=== PATIENT | female | born 1995 | race American Indian/Alaskan Native ===

== ENCOUNTER 2016-12-19 15:07 | Emergency (ER) | payer MEDICAID ==
[2016-12-19 15:34] VITALS: BP 137/100
[2016-12-19 17:37] LABS: Bilirubin,Urine NEG (Negative); Blood,Urine MOD (Negative); Ketones,Urine NEG (Negative); Leukocyte Esterase,Urine LG (Negative); Mucus,Urine 1+ /HPF; Nitrite,Urine NEG (Negative); Urobilinogen,Urine < 2.0 mg/dL (<2.0)
--- NOTE | 2016-12-19 18:55 | Emergency Department Report ---
Entered by FARHAD NARAYANAN, acting as scribe for BELKYS FELDER PA. ED Back Pain/Injury HPI - General Chief Complaint: Back Pain/Injury Stated Complaint: BACK PAIN Source: patient Limitations: No Limitations - History of Present Illness Initial Comments: 21 y/o female with no significant PMHx, presents to the ED c/o right side lower back pain beginning yesterday. Denies radiation of pain. Denies numbness, weakness, paresthesias. The back pain is rated 8/10 severity. The patient denies acute trauma or injury to the affected area. Associated symptom of generalized weakness, fatigue, and lower abdominal pain, but she denies hematuria, urinary frequency, vaginal discharge, vaginal bleeding, chest pain, SOB, nausea, vomiting, and dysuria. Noted the patient has a Hx of UTI, but denies Hx of kidney stones. LMP 11/2016. Complaint: back pain -: days(s) (1 day ago, yesterday) Place: work Radiation: none Severity: moderate Severity scale (0 -10): 8 Consistency: constant Improves With: none Worsens With: none Context: unknown (patient denies acute injury or fall, ) Associated Symptoms: abdominal pain (lower), other (generalized weakness, fatigue, lightheadedness). denies: chest pain, fever/chills (urinary frequency , vaginal bleeding, hematuria, vaginal discharge), nausea/vomiting, shortness of breath - Related Data Previous Rx's Medication Instructions Recorded Last Taken Type Ibuprofen [Motrin 600 MG tab] 600 mg PO Q8H PRN #30 tablet 09/03/16 Unknown Rx Multivitamin with Iron 1 each PO DAILY #30 tablet 09/03/16 Unknown Rx [Multivitamins with Iron] Acetaminophen/Codeine [Tylenol #3] 1 tab PO Q6H PRN #10 tab 12/19/16 Unknown Rx Levofloxacin [Levaquin] 750 mg PO QDAY #5 tablet 12/19/16 Unknown Rx Allergies Allergy/AdvReac Type Severity Reaction Status Date / Time No Known Allergies Allergy Unverified 08/24/16 22:26 ED Review of Systems Comment: All other systems reviewed and negative Constitutional: denies: chills, fever Respiratory: denies: shortness of breath Cardiovascular: denies: chest pain Gastrointestinal: abdominal pain (lower). denies: nausea, vomiting Genitourinary: denies: urgency, dysuria, frequency, hematuria, discharge, other (vaginal bleeding) Musculoskeletal: back pain (right lower side) Neurological: other (generalized weakness, fatigue, lightheadedness) ED Past Medical Hx - Past Medical History Previous Medical History?: Yes Hx Hypertension: No Hx Congestive Heart Failure: No Hx Diabetes: No Hx Deep Vein Thrombosis: No Hx Renal Disease: No Hx Sickle Cell Disease: No Hx Seizures: No Hx Asthma: No (Hx Bronchitis) Hx COPD: No Hx HIV: No Additional medical history: Vaginal delivery x 1 - Surgical History Past Surgical History?: No - Social History Smoking Status: Never Smoker Substance Use Type: Non Opiate Pain - Medications Home Medications: Home Medications Medication Instructions Recorded Confirmed Last Taken Type Ibuprofen [Motrin 600 MG tab] 600 mg PO Q8H PRN #30 tablet 09/03/16 Unknown Rx Multivitamin with Iron 1 each PO DAILY #30 tablet 09/03/16 Unknown Rx [Multivitamins with Iron] Acetaminophen/Codeine [Tylenol #3] 1 tab PO Q6H PRN #10 tab 12/19/16 Unknown Rx Levofloxacin [Levaquin] 750 mg PO QDAY #5 tablet 12/19/16 Unknown Rx ED Physical Exam - General Limitations: No Limitations General appearance: alert, in no apparent distress - Head Head exam: Present: atraumatic, normocephalic - Eye Eye exam: Present: normal appearance - ENT ENT exam: Present: normal external ear exam - Neck Neck exam: Present: normal inspection, full ROM (supple) - Respiratory Respiratory exam: Present: normal lung sounds bilaterally (clear to auscultation ). Absent: respiratory distress - Cardiovascular Cardiovascular Exam: Present: regular rate, normal rhythm, normal heart sounds. Absent: systolic murmur, diastolic murmur, rubs, gallop - GI/Abdominal GI/Abdominal exam: Present: soft, normal bowel sounds (normoactive bowel sounds) . Absent: tenderness, guarding, rebound - Extremities Exam Extremities exam: Present: normal inspection, full ROM - Back Exam Back exam: Present: normal inspection, full ROM, CVA tenderness (R). Absent: CVA tenderness (L), paraspinal tenderness, vertebral tenderness - Expanded Back Exam Expanded Back exam: Negative Straight Leg Raising: Left, Right - Neurological Exam Neurological exam: Present: alert, oriented X3 - Psychiatric Psychiatric exam: Present: normal affect, normal mood - Skin Skin exam: Present: warm, dry, intact ED Course Vital Signs 12/19/16 15:31 Temperature 98.2 F Pulse Rate 55 L Respiratory 18 Rate Blood Pressure 137/100 O2 Sat by Pulse 99 Oximetry ED Medical Decision Making - Lab Data Vital Signs 12/19/16 15:31 Temperature 98.2 F Pulse Rate 55 L Respiratory 18 Rate Blood Pressure 137/100 O2 Sat by Pulse 99 Oximetry Lab Results 12/19/16 Range/Units 16:01 Urine Color Yellow (Yellow) Urine Turbidity Clear (Clear) Urine pH 5.0 (5.0-7.0) Ur Specific Antoine 1.025 (1.003-1.030) Urine Protein 30 mg/dl (Negative) mg/dL Urine Glucose (UA) Neg (Negative) mg/dL Urine Ketones Neg (Negative) mg/dL Urine Blood Mod (Negative) Urine Nitrite Neg (Negative) Urine Bilirubin Neg (Negative) Urine Urobilinogen < 2.0 (<2.0) mg/dL Ur Leukocyte Esterase Lg (Negative) Urine WBC (Auto) 66.0 H (0.0-6.0) /HPF Urine RBC (Auto) 2.0 (0.0-6.0) /HPF U Epithel Cells (Auto) 5.0 (0-13.0) /HPF Urine Mucus 1+ /HPF Urine HCG, Qual Negative (Negative) - Medical Decision Making 21 y/o female presents complaining of right side lower back pain beginning yesterday. Patient has prior Hx of UTI. Her urine test is negative. Her urinalysis reveals large leukocyte esterase, elevated urine WBC and moderate blood. Patient is in no acute distress at this time, with normal vitals and non-febrile. Patient will be sent home on Levaquin. She will be discharged home and is encouraged to follow up with a primary care provider. She is encouraged to return to the emergency room for any worsening symptoms. ED Disposition Clinical Impression: UTI (urinary tract infection) Qualifiers: Urinary tract infection type: acute cystitis Hematuria presence: with hematuria Qualified Code(s): N30.01 - Acute cystitis with hematuria Disposition: DISCHARGED TO HOME OR SELFCARE Is pt being admited?: No Does the pt Need Aspirin: No Condition: Stable Instructions: Urinary Tract Infection in Women (ED) Additional Instructions: Follow-up with primary care provider. Return to the emergency department if symptoms worsen. Prescriptions: Acetaminophen/Codeine [Tylenol #3] 1 tab PO Q6H PRN #10 tab PRN Reason: Pain Levofloxacin [Levaquin] 750 mg PO QDAY #5 tablet Referrals: HARSHAD JAY MD [Primary Care Provider] - 3-5 Days SAMANTHA BAXTER MD [Staff Physician] - 3-5 Days Forms: Work/School Release Form(ED), Accompanied Note Time of Disposition: 18:50 This documentation as recorded by the ORACIO josé GRACE,accurately reflects the service I personally performed and the decisions made by ,BELKYS FELDER PA.
== END 2016-12-19 18:59 | disposition home or self-care (01) ==
LOC: ED 15:07
DX: N30.01 Acute cystitis with hematuria (principal)
CPT/HCPCS: 81001; 81025; 99283

== ENCOUNTER 2018-04-10 19:42 | Emergency (ER) | payer MEDICAID ==
[2018-04-10 20:52] LABS: Bilirubin,Urine NEG (Negative); Blood,Urine SM (Negative); Color,Urine Yellow (Yellow); Mucus,Urine FEW /HPF; Protein,Urine <15 mg/dL mg/dL (Negative)
[2018-04-10 21:24] LABS: Basophils % (Auto) 0.2 % (0.0-1.8); Eosinophils # (Auto) 0.4 K/mm3 (0.0-0.4); Eosinophils % (Auto) 5.7 % (0.0-4.3); Hematocrit 36.8 % (30.3-42.9); Hemoglobin 12.9 gm/dl (10.1-14.3); Lymphocytes # (Auto) 1.3 K/mm3 (1.2-5.4); Lymphocytes % (Auto) 19.1 % (13.4-35.0); Mean Corpuscular HGB Conc 35 % (30-34); Mean Corpuscular Hemoglobin 31 pg (28-32); Mean Corpuscular Volume 88 fl (79-97); Monocytes # (Auto) 0.6 K/mm3 (0.0-0.8); Monocytes % (Auto) 9.2 % (0.0-7.3); Platelet Count 196 K/mm3 (140-440); Red Blood Count 4.19 M/mm3 (3.65-5.03); Red Cell Distribution Width 13.5 % (13.2-15.2)
--- NOTE | 2018-04-11 00:17 | Emergency Department Report ---
ED Female HPI - General Chief complaint: Vaginal Bleeding Stated complaint: VAGINAL BLEEDING Time Seen by Provider: 04/11/18 00:09 Source: patient Mode of arrival: Ambulatory Limitations: No Limitations - History of Present Illness Initial comments: Ms. Miranda is pleasant 22 yo female who presents with vaginal spotting for one hour. Mild bleeding only when she wiped. She does not have pain. Sudden onset of symptoms. Now resolved. first appt at [facility] scheduled 04/20/2018 Complaint: vaginal bleeding -: Sudden Severity: mild Are you Now?: Yes Last Menstrual Period: 01/23/18 EDC: 10/30/18 Associated Symptoms: vaginal bleeding - Related Data Previous Rx's Medication Instructions Recorded Last Taken Type Ibuprofen [Motrin 600 MG tab] 600 mg PO Q8H PRN #30 tablet 09/03/16 Unknown Rx Multivitamin with Iron 1 each PO DAILY #30 tablet 09/03/16 Unknown Rx [Multivitamins with Iron] Acetaminophen/Codeine [Tylenol #3] 1 tab PO Q6H PRN #10 tab 12/19/16 Unknown Rx Levofloxacin [Levaquin] 750 mg PO QDAY #5 tablet 12/19/16 Unknown Rx Allergies Allergy/AdvReac Type Severity Reaction Status Date / Time No Known Allergies Allergy Verified 04/10/18 20:00 ED Review of Systems ROS: Stated complaint: VAGINAL BLEEDING Other details as noted in HPI Comment: All other systems reviewed and negative Constitutional: denies: fever, malaise Cardiovascular: denies: chest pain Gastrointestinal: denies: abdominal pain ED Past Medical Hx - Past Medical History Previous Medical History?: Yes Hx Hypertension: No Hx Congestive Heart Failure: No Hx Diabetes: No Hx Deep Vein Thrombosis: No Hx Renal Disease: No Hx Sickle Cell Disease: No Hx Seizures: No Hx Asthma: Yes (Hx Bronchitis) Hx COPD: No Hx HIV: No Additional medical history: Vaginal delivery x 1 - Surgical History Past Surgical History?: No - Social History Smoking Status: Never Smoker Substance Use Type: None - Medications Home Medications: Home Medications Medication Instructions Recorded Confirmed Last Taken Type Ibuprofen [Motrin 600 MG tab] 600 mg PO Q8H PRN #30 tablet 09/03/16 Unknown Rx Multivitamin with Iron 1 each PO DAILY #30 tablet 09/03/16 Unknown Rx [Multivitamins with Iron] Acetaminophen/Codeine [Tylenol #3] 1 tab PO Q6H PRN #10 tab 12/19/16 Unknown Rx Levofloxacin [Levaquin] 750 mg PO QDAY #5 tablet 12/19/16 Unknown Rx ED Physical Exam - General Limitations: No Limitations General appearance: alert, in no apparent distress - Head Head exam: Present: atraumatic, normocephalic - Eye Eye exam: Present: normal appearance - ENT ENT exam: Present: mucous membranes moist - Neck Neck exam: Present: normal inspection. Absent: tenderness, meningismus - Respiratory Respiratory exam: Present: normal lung sounds bilaterally. Absent: respiratory distress, wheezes, rales, rhonchi - Cardiovascular Cardiovascular Exam: Present: regular rate, normal rhythm. Absent: systolic murmur, diastolic murmur, rubs, gallop - GI/Abdominal GI/Abdominal exam: Present: soft, normal bowel sounds. Absent: distended, tenderness, guarding, rebound - Extremities Exam Extremities exam: Present: normal inspection - Back Exam Back exam: Present: normal inspection - Neurological Exam Neurological exam: Present: alert, oriented X3 - Psychiatric Psychiatric exam: Present: normal affect, normal mood - Skin Skin exam: Present: warm, dry, intact, normal color. Absent: rash ED Course Vital Signs 04/10/18 04/10/18 19:56 23:54 Temperature 98.3 F 98.2 F Pulse Rate 85 82 Respiratory 18 16 Rate Blood Pressure 119/89 Blood Pressure 121/71 [Left] O2 Sat by Pulse 98 99 Oximetry ED Medical Decision Making - Lab Data Result diagrams: 04/10/18 20:57 Laboratory Results - last 24 hr 04/10/18 04/10/18 04/10/18 20:28 20:57 20:57 WBC 6.8 RBC 4.19 Hgb 12.9 Hct 36.8 MCV 88 MCH 31 MCHC 35 H RDW 13.5 Plt Count 196 Lymph % (Auto) 19.1 [place] % (Auto) 9.2 H Eos % (Auto) 5.7 H Baso % (Auto) 0.2 Lymph # 1.3 [place] # 0.6 Eos # 0.4 Baso # 0.0 Seg Neutrophils % 65.8 Seg Neutrophils # 4.5 HCG, Quant 50774 H Urine Color Yellow Urine Turbidity Clear Urine pH 6.0 Ur Specific Mathews 1.028 Urine Protein <15 mg/dl Urine Glucose (UA) Neg Urine Ketones Neg Urine Blood Sm Urine Nitrite Neg Urine Bilirubin Neg Urine Urobilinogen 2.0 Ur Leukocyte Esterase Neg Urine WBC (Auto) 1.0 Urine RBC (Auto) 2.0 U Epithel Cells (Auto) 1.0 Urine Mucus Few Blood Type Antibody Screen 04/10/18 20:57 WBC RBC Hgb Hct MCV MCH MCHC RDW Plt Count Lymph % (Auto) [place] % (Auto) Eos % (Auto) Baso % (Auto) Lymph # [place] # Eos # Baso # Seg Neutrophils % Seg Neutrophils # HCG, Quant Urine Color Urine Turbidity Urine pH Ur Specific [place] Urine Protein Urine Glucose (UA) Urine Ketones Urine Blood Urine Nitrite Urine Bilirubin Urine Urobilinogen Ur Leukocyte Esterase Urine WBC (Auto) Urine RBC (Auto) U Epithel Cells (Auto) Urine Mucus Blood Type AB POSITIVE Antibody Screen Negative - Medical Decision Making Ms. Miranda is currently 11 weeks 1 day with mild vaginal spotting. No indication of ectopic without pain or other symptoms. Patient given return precautions. Rh+ Critical care attestation.: If time is entered above; I have spent that time in minutes in the direct care of this critically ill patient, excluding procedure time. ED Disposition Clinical Impression: Threatened miscarriage Disposition: DC-01 TO HOME OR SELFCARE Is pt being admited?: No Does the pt Need Aspirin: No Condition: Stable Instructions: Threatened Miscarriage (ED) Additional Instructions: Your due date is 10/30/2018 Referrals: PRIMARY CAREMD [Primary Care Provider] - 3-5 Days Time of Disposition: 00:18
[2018-04-11 00:23] VITALS: BP 112/70
== END 2018-04-11 00:26 | disposition home or self-care (01) ==
LOC: ED 19:42
DX: O20.0 Threatened abortion (principal); Z3A.11 11 weeks gestation of pregnancy; J45.909 Unspecified asthma, uncomplicated
CPT/HCPCS: 36415; 81001; 84702; 85025; 86850; 86900; 86901; 99283

== ENCOUNTER 2018-05-29 21:17 | Emergency (ER) | payer MEDICAID ==
[2018-05-29 22:16] LABS: Hematocrit 45.6 % (30.3-42.9); Hemoglobin 15.7 gm/dl (10.1-14.3); Mean Corpuscular HGB Conc 35 % (30-34); Mean Corpuscular Hemoglobin 30 pg (28-32); Mean Corpuscular Volume 88 fl (79-97); Platelet Count 286 K/mm3 (140-440); Red Blood Count 5.17 M/mm3 (3.65-5.03); Red Cell Distribution Width 13.4 % (13.2-15.2)
[2018-05-29 22:35] LABS: BUN/Creatinine Ratio 21; Blood Urea Nitrogen 15 mg/dL (7-17); Hemolysis Index 10
[2018-05-29 23:13] LABS: Bilirubin,Urine NEG (Negative); Blood,Urine NEG (Negative); Color,Urine Yellow (Yellow); Mucus,Urine FEW /HPF; Urobilinogen,Urine < 2.0 mg/dL (<2.0)
[2018-05-29 23:17] LABS: HCG Qualitative,Urine Negative (Negative)
[2018-05-30 07:39] VITALS: BP 117/76
== END 2018-05-30 07:39 | disposition left against medical advice (07) ==
LOC: ED 21:17
DX: R51 Headache (principal); Z53.21 Procedure and treatment not carried out due to patient leaving prior to being seen by health care provider
CPT/HCPCS: 36415; 80048; 81001; 81025; 85027

== ENCOUNTER 2018-12-13 22:31 | Outpatient (CLI) | payer BC, MEDICAID ==
[2018-12-13] MEDS ORDERED: LACTATED RINGERS 1,000 ML IV ONE (23:21)
[2018-12-13 23:25] VITALS: BP 124/85
[2018-12-14 00:41] LABS: Amorphous Crystals,Urine 3+; Bilirubin,Urine NEG (Negative); Blood,Urine NEG (Negative); Color,Urine Yellow (Yellow); Granular Casts,Urine 16 /LPF; Mucus,Urine FEW /HPF; Protein,Urine <15 mg/dL mg/dL (Negative)
== END 2018-12-14 02:51 | disposition home or self-care (01) ==
LOC: EDSTATUS 22:57 → TRG 22:58
PROVIDERS: ATTEND Obstetrics & Gynecology
DX: O26.893 Other specified pregnancy related conditions, third trimester (principal); R10.2 Pelvic and perineal pain; Z3A.29 29 weeks gestation of pregnancy
CPT/HCPCS: 59025; 81001; 96360; J7120

== ENCOUNTER 2021-06-03 17:28 | Emergency (ER) | payer MEDICAID ==
[2021-06-03 21:12] VITALS: BP 130/70
[2021-06-03] MEDS ORDERED: PROMETHAZINE 25 MG TAB PO ONE (23:50)
--- NOTE | 2021-06-03 23:54 | Emergency Department Report ---
ED N/V/D HPI - General Chief complaint: Nausea/Vomiting/Diarrhea Stated complaint: RUNNY NOSE,DRY COUGH,VOMITING Source: patient Mode of arrival: Ambulatory Limitations: No Limitations - History of Present Illness Initial comments: Patient is A0 25-year-old -[place] female who is approximately 13 weeks gestation and who presents to the ED with complaint of acute onset persistent intermittent nausea and vomiting for the last 2 weeks. Patient states that she has been taking Zofran that was previously prescribed by her CARE DIRECTOR RN physician but that this medicine has not helped control her nausea and vomiting. Patient states that in the last 12 hours she has not been able to eat or drink anything because of persistent intermittent nausea and vomiting. Patient denies abdominal pain, vaginal bleeding, dysuria, urinary frequency and urgency, back pain, chest pain, shortness of breath, fever, chills, sore throat, headache, dizziness, lightheadedness or change in vision. MD complaint: nausea, vomiting, other -: Sudden, week(s) (2) Description of Vomiting: food contents, bilious Associated Abdominal Pain: No Location: diffuse Radiation: none Severity: mild Pain Scale: 0 Quality: dull Improves with: none Worsens with: eating, vomiting Context: other (approximately 12 weeks gestation) Associated Symptoms: denies other symptoms, nausea/vomiting. denies: myalgias, chest pain, cough, fever/chills, headaches, malaise, rash, dysuria, shortness of breath, syncope, weakness - Related Data Previous Rx's Medication Instructions Recorded Last Taken Type Ibuprofen [Motrin 600 MG tab] 600 mg PO Q8H PRN #30 tablet 09/03/16 Unknown Rx Multivitamin with Iron 1 each PO DAILY #30 tablet 09/03/16 Unknown Rx [Multivitamins with Iron] Acetaminophen/Codeine [Tylenol #3] 1 tab PO Q6H PRN #10 tab 12/19/16 Unknown Rx levoFLOXacin [Levaquin] 750 mg PO QDAY #5 tablet 12/19/16 Unknown Rx Acetaminophen [Tylenol] 650 mg PO QID PRN #30 capsule 09/14/18 Unknown Rx diphenhydrAMINE [Benadryl CAP] 25 mg PO Q6HR PRN #30 capsule 09/14/18 Unknown Rx Famotidine [Pepcid] 20 mg PO BID #40 tablet 06/03/21 Unknown Rx Metoclopramide [Reglan TAB] 10 mg PO Q8H PRN #30 tablet 06/03/21 Unknown Rx Promethazine HCl [Promethegan] 25 mg RC QHS PRN #20 supp.rect 06/03/21 Unknown Rx Allergies Allergy/AdvReac Type Severity Reaction Status Date / Time No Known Allergies Allergy Verified 06/03/21 21:01 ED Review of Systems ROS: Stated complaint: RUNNY NOSE,DRY COUGH,VOMITING Other details as noted in HPI Constitutional: denies: chills, fever Eyes: denies: eye pain, eye discharge, vision change ENT: denies: ear pain, throat pain Respiratory: denies: cough, shortness of breath, wheezing Cardiovascular: denies: chest pain, palpitations Endocrine: no symptoms reported Gastrointestinal: nausea, vomiting. denies: abdominal pain, diarrhea Genitourinary: denies: urgency, dysuria, discharge Musculoskeletal: denies: back pain, joint swelling, arthralgia Skin: denies: rash, lesions Neurological: denies: headache, weakness, paresthesias Psychiatric: denies: anxiety, depression Hematological/Lymphatic: denies: easy bleeding, easy bruising ED Past Medical Hx - Past Medical History Previous Medical History?: No Hx Hypertension: No Hx Congestive Heart Failure: No Hx Diabetes: No Hx Deep Vein Thrombosis: No Hx Renal Disease: No Hx Sickle Cell Disease: No Hx Seizures: No Hx Asthma: No Hx COPD: No Hx HIV: No Additional medical history: Vaginal delivery x 1 - Social History Smoking Status: Never Smoker - Medications Home Medications: Home Medications Medication Instructions Recorded Confirmed Last Taken Type Ibuprofen [Motrin 600 MG tab] 600 mg PO Q8H PRN #30 tablet 09/03/16 Unknown Rx Multivitamin with Iron 1 each PO DAILY #30 tablet 09/03/16 Unknown Rx [Multivitamins with Iron] Acetaminophen/Codeine [Tylenol #3] 1 tab PO Q6H PRN #10 tab 12/19/16 Unknown Rx levoFLOXacin [Levaquin] 750 mg PO QDAY #5 tablet 12/19/16 Unknown Rx Acetaminophen [Tylenol] 650 mg PO QID PRN #30 capsule 09/14/18 Unknown Rx diphenhydrAMINE [Benadryl CAP] 25 mg PO Q6HR PRN #30 capsule 09/14/18 Unknown Rx Famotidine [Pepcid] 20 mg PO BID #40 tablet 06/03/21 Unknown Rx Metoclopramide [Reglan TAB] 10 mg PO Q8H PRN #30 tablet 06/03/21 Unknown Rx Promethazine HCl [Promethegan] 25 mg RC QHS PRN #20 supp.rect 06/03/21 Unknown Rx ED Physical Exam - General Limitations: No Limitations General appearance: alert, in no apparent distress - Head Head exam: Present: atraumatic, normocephalic, normal inspection - Eye Eye exam: Present: normal appearance, PERRL, EOMI Pupils: Present: normal accommodation - ENT ENT exam: Present: normal exam, normal orophraynx, mucous membranes moist, TM's normal bilaterally, normal external ear exam - Neck Neck exam: Present: normal inspection, full ROM - Respiratory Respiratory exam: Present: normal lung sounds bilaterally. Absent: respiratory distress, wheezes, rales, rhonchi, chest wall tenderness, accessory muscle use, decreased breath sounds, prolonged expiratory - Cardiovascular Cardiovascular Exam: Present: regular rate, normal rhythm, normal heart sounds. Absent: systolic murmur, diastolic murmur, rubs, gallop - GI/Abdominal GI/Abdominal exam: Present: soft, normal bowel sounds. Absent: tenderness, guarding, rebound, hyperactive bowel sounds, hypoactive bowel sounds, organomegaly - Extremities Exam Extremities exam: Present: normal inspection, full ROM, normal capillary refill - Back Exam Back exam: Present: normal inspection, full ROM. Absent: tenderness, CVA tenderness (R), CVA tenderness (L), muscle spasm, paraspinal tenderness, vertebral tenderness - Neurological Exam Neurological exam: Present: alert, oriented X3, CN II-XII intact, normal gait, reflexes normal - Psychiatric Psychiatric exam: Present: normal affect, normal mood - Skin Skin exam: Present: warm, dry, intact, normal color. Absent: rash ED Course Vital Signs 06/03/21 21:01 Temperature 98.3 F Pulse Rate 66 Respiratory 18 Rate Blood Pressure 130/70 O2 Sat by Pulse 100 Oximetry ED Medical Decision Making - Medical Decision Making This is A0 25-year-old -[place] female who is approximately 13 weeks gestation and who presents to the ED with complaint of acute onset persistent intermittent nausea and vomiting for the last 2 weeks. Patient states that she has been taking Zofran that was previously prescribed by her CARE DIRECTOR RN physician but that this medicine has not helped control her nausea and vomiting. Patient states that in the last 12 hours she has not been able to eat or drink anything because of persistent intermittent nausea and vomiting. In the ED, patient is alert and oriented x3 and is not in any distress. Patient is hemodynamically stable. Patient was treated in the ED with Phenergan 25 mg p.o. x1. On reevaluation, patient felt better and was discharged home on medications including antiemetics and antacids. Patient was advised to follow-up with her CARE DIRECTOR RN physician in 5 to 7 days for reevaluation or return to the ED immediately if symptoms get worse. - Differential Diagnosis dehydration; hyperemesis gravidarum; viral gastroenteritis; GERD Critical care attestation.: If time is entered above; I have spent that time in minutes in the direct care of this critically ill patient, excluding procedure time. ED Disposition Clinical Impression: Nausea and vomiting in prior to 22 weeks gestation Disposition: HOME / SELF CARE / HOMELESS Is pt being admited?: No Does the pt Need Aspirin: No Condition: Stable Instructions: Nausea and Vomiting, Adult, [id number], Morning Sickness, [id number] Additional Instructions: Take medication with food, drink plenty of fluids and follow-up with your primary care physician or CARE DIRECTOR RN physician in 5 to 7 days for reevaluation. Return to the ED immediately if symptoms get worse. Prescriptions: Promethazine HCl [Promethegan] 25 mg RC QHS PRN #20 supp.rect PRN Reason: Nausea And Vomiting Famotidine [Pepcid] 20 mg PO BID #40 tablet Metoclopramide [Reglan TAB] 10 mg PO Q8H PRN #30 tablet PRN Reason: Vomiting Referrals: SUNIL JAY MD [Referring] - 3-5 Days Forms: Work/School Release Form(ED) Time of Disposition: 23:55 Print Language: THAI
== END 2021-06-04 00:37 | disposition home or self-care (01) ==
LOC: ED 17:28
DX: O21.8 Other vomiting complicating pregnancy (principal); O26.891 Other specified pregnancy related conditions, first trimester; Z3A.13 13 weeks gestation of pregnancy
CPT/HCPCS: 99281; Q0169

== ENCOUNTER 2021-06-15 16:53 | Emergency (ER) | payer MEDICAID ==
[2021-06-15 17:58] VITALS: BP 106/73
[2021-06-15] MEDS ORDERED: SODIUM CHLORIDE 0.9% 1000 ML 1,000 ML IV ONE (19:12)
[2021-06-15] MEDS ORDERED: METOCLOPRAMIDE 10 MG/2 ML INJ IV ONE (19:12)
[2021-06-15 20:00] LABS: Basophils % (Auto) 0.3 % (0.0-1.8); Eosinophils # (Auto) 0.1 K/mm3 (0.0-0.4); Eosinophils % (Auto) 1.5 % (0.0-4.3); Hematocrit 38.9 % (30.3-42.9); Hemoglobin 13.9 gm/dl (10.1-14.3); Lymphocytes # (Auto) 1.3 K/mm3 (1.2-5.4); Lymphocytes % (Auto) 20.9 % (13.4-35.0); Mean Corpuscular HGB Conc 36 % (30-34); Mean Corpuscular Volume 86 fl (79-97); Monocytes # (Auto) 0.6 K/mm3 (0.0-0.8); Monocytes % (Auto) 9.1 % (0.0-7.3); Platelet Count 194 K/mm3 (140-440); Red Blood Count 4.51 M/mm3 (3.65-5.03); Red Cell Distribution Width 13.2 % (13.2-15.2)
[2021-06-15 20:18] LABS: Alanine Aminotransferase 8 units/L (7-56); Albumin 4.2 g/dL (3.9-5); Blood Urea Nitrogen 7 mg/dL (7-17); Calcium 9.3 mg/dL (8.4-10.2); Hemolysis Index 1
[2021-06-15 20:19] LABS: BUN/Creatinine Ratio 14
--- NOTE | 2021-06-15 22:15 | Emergency Department Report ---
ED N/V/D HPI - General Chief complaint: Nausea/Vomiting/Diarrhea Stated complaint: NAUSEA X 3WKS/15 WKS PREG Time Seen by Provider: 06/15/21 19:03 Source: patient, family Mode of arrival: Ambulatory Limitations: No Limitations - History of Present Illness Initial comments: This is a 25-year-old female nontoxic, well nourished in appearance, no acute signs of distress presents to the ED with c/o of intermittent nausea and vomiting 3 weeks. Patient stated that 15 weeks . Patient stated follows up with an [facility]. Patient otherwise denies any vaginal bleeding. Denies any other complaints or symptoms. Patient describes vomiting as food content. Patient denies any abdominal pain, pelvic pain, chest pain, short of breath, fever, chills, headache, stiff neck, numbness or tingling. Patient denies any diarrhea or constipation. Denies any blood in stool. Patient denies any recent travels. Patient denies any drug allergies or significant past medical history. MD complaint: nausea, vomiting -: week(s) Associated Abdominal Pain: No Radiation: none Pain Scale: 0 Consistency: intermittent Improves with: none Worsens with: none Associated Symptoms: nausea/vomiting. denies: myalgias, chest pain, cough, d iaphoresis, fever/chills, headaches, loss of appetite, malaise, rash, dysuria, shortness of breath, syncope, weakness - Related Data Previous Rx's Medication Instructions Recorded Last Taken Type Ibuprofen [Motrin 600 MG tab] 600 mg PO Q8H PRN #30 tablet 09/03/16 Unknown Rx Multivitamin with Iron 1 each PO DAILY #30 tablet 09/03/16 Unknown Rx [Multivitamins with Iron] Acetaminophen/Codeine [Tylenol #3] 1 tab PO Q6H PRN #10 tab 12/19/16 Unknown Rx levoFLOXacin [Levaquin] 750 mg PO QDAY #5 tablet 12/19/16 Unknown Rx Acetaminophen [Tylenol] 650 mg PO QID PRN #30 capsule 09/14/18 Unknown Rx diphenhydrAMINE [Benadryl CAP] 25 mg PO Q6HR PRN #30 capsule 09/14/18 Unknown Rx Famotidine [Pepcid] 20 mg PO BID #40 tablet 06/03/21 Unknown Rx Metoclopramide [Reglan TAB] 10 mg PO Q8H PRN #30 tablet 06/03/21 Unknown Rx Promethazine HCl [Promethegan] 25 mg RC QHS PRN #20 supp.rect 06/03/21 Unknown Rx Metoclopramide [Reglan] 10 mg PO Q12H PRN #12 tab 06/15/21 Unknown Rx Allergies Allergy/AdvReac Type Severity Reaction Status Date / Time No Known Allergies Allergy Verified 06/03/21 21:01 ED Review of Systems ROS: Stated complaint: NAUSEA X 3WKS/15 WKS PREG Other details as noted in HPI Comment: All other systems reviewed and negative Constitutional: denies: chills, fever Eyes: denies: eye pain, eye discharge, vision change ENT: denies: ear pain, throat pain Respiratory: denies: cough, shortness of breath, wheezing Cardiovascular: denies: chest pain, palpitations Endocrine: no symptoms reported Gastrointestinal: nausea, vomiting. denies: abdominal pain, diarrhea, constipation, hematemesis, melena, hematochezia Genitourinary: denies: urgency, dysuria, discharge Musculoskeletal: denies: back pain, joint swelling, arthralgia Skin: denies: rash, lesions Neurological: denies: headache, weakness, paresthesias Psychiatric: denies: anxiety, depression Hematological/Lymphatic: denies: easy bleeding, easy bruising ED Past Medical Hx - Past Medical History Previous Medical History?: Yes Hx Hypertension: No Hx Congestive Heart Failure: No Hx Diabetes: No Hx Deep Vein Thrombosis: No Hx Renal Disease: No Hx Sickle Cell Disease: No Hx Seizures: No Hx Asthma: No Hx COPD: No Hx HIV: No Additional medical history: Vaginal delivery x 1 - Surgical History Past Surgical History?: No - Social History Smoking Status: Never Smoker - Medications Home Medications: Home Medications Medication Instructions Recorded Confirmed Last Taken Type Ibuprofen [Motrin 600 MG tab] 600 mg PO Q8H PRN #30 tablet 09/03/16 Unknown Rx Multivitamin with Iron 1 each PO DAILY #30 tablet 09/03/16 Unknown Rx [Multivitamins with Iron] Acetaminophen/Codeine [Tylenol #3] 1 tab PO Q6H PRN #10 tab 12/19/16 Unknown Rx levoFLOXacin [Levaquin] 750 mg PO QDAY #5 tablet 12/19/16 Unknown Rx Acetaminophen [Tylenol] 650 mg PO QID PRN #30 capsule 09/14/18 Unknown Rx diphenhydrAMINE [Benadryl CAP] 25 mg PO Q6HR PRN #30 capsule 09/14/18 Unknown Rx Famotidine [Pepcid] 20 mg PO BID #40 tablet 06/03/21 Unknown Rx Metoclopramide [Reglan TAB] 10 mg PO Q8H PRN #30 tablet 06/03/21 Unknown Rx Promethazine HCl [Promethegan] 25 mg RC QHS PRN #20 supp.rect 06/03/21 Unknown Rx Metoclopramide [Reglan] 10 mg PO Q12H PRN #12 tab 06/15/21 Unknown Rx ED Physical Exam - General Limitations: No Limitations General appearance: alert, in no apparent distress - Head Head exam: Present: atraumatic, normocephalic - Eye Eye exam: Present: normal appearance - Neck Neck exam: Present: normal inspection, full ROM. Absent: tenderness, meningismus, lymphadenopathy - Respiratory Respiratory exam: Present: normal lung sounds bilaterally. Absent: respiratory distress, wheezes, rales, rhonchi, stridor, chest wall tenderness, accessory muscle use, decreased breath sounds, prolonged expiratory - Cardiovascular Cardiovascular Exam: Present: regular rate, normal rhythm, normal heart sounds. Absent: bradycardia, tachycardia, irregular rhythm, systolic murmur, diastolic murmur, rubs, gallop - GI/Abdominal GI/Abdominal exam: Present: soft, normal bowel sounds. Absent: distended, tenderness, guarding, rebound, rigid - Extremities Exam Extremities exam: Present: normal inspection, full ROM - Back Exam Back exam: Present: normal inspection, full ROM. Absent: tenderness, CVA tenderness (R), CVA tenderness (L), muscle spasm, paraspinal tenderness, vertebral tenderness, rash noted - Neurological Exam Neurological exam: Present: alert, oriented X3, normal gait - Psychiatric Psychiatric exam: Present: normal affect, normal mood - Skin Skin exam: Present: warm, dry, intact, normal color. Absent: rash ED Course Vital Signs 06/15/21 17:57 Temperature 98.3 F Pulse Rate 77 Respiratory 18 Rate Blood Pressure 106/73 [Right] O2 Sat by Pulse 99 Oximetry - Reevaluation(s) Reevaluation #1: 06/15/21 22:17 Patient is speaking in full sentences with no signs of distress noted. ED Medical Decision Making - Lab Data Result diagrams: 06/15/21 19:42 06/15/21 19:42 Lab Results 06/15/21 06/15/21 06/15/21 Range/Units 19:42 19:42 19:42 WBC 6.3 (4.5-11.0) K/mm3 RBC 4.51 (3.65-5.03) M/mm3 Hgb 13.9 (10.1-14.3) gm/dl Hct 38.9 (30.3-42.9) % MCV 86 (79-97) fl MCH 31 (28-32) pg MCHC 36 H (30-34) % RDW 13.2 (13.2-15.2) % Plt Count 194 (140-440) K/mm3 Lymph % (Auto) 20.9 (13.4-35.0) % Wheeler % (Auto) 9.1 H (0.0-7.3) % Eos % (Auto) 1.5 (0.0-4.3) % Baso % (Auto) 0.3 (0.0-1.8) % Lymph # (Auto) 1.3 (1.2-5.4) K/mm3 Wheeler # (Auto) 0.6 (0.0-0.8) K/mm3 Eos # (Auto) 0.1 (0.0-0.4) K/mm3 Baso # (Auto) 0.0 (0.0-0.1) K/mm3 Seg Neutrophils % 68.2 (40.0-70.0) % Seg Neutrophils # 4.3 (1.8-7.7) K/mm3 Sodium 135 L (137-145) mmol/L Potassium 3.8 (3.6-5.0) mmol/L Chloride 101.7 (98-107) mmol/L Carbon Dioxide 24 (22-30) mmol/L Anion Gap 13 mmol/L BUN 7 (7-17) mg/dL Creatinine 0.5 L (0.6-1.2) mg/dL Estimated GFR > 60 ml/min BUN/Creatinine Ratio 14 % Glucose 89 (65-100) mg/dL Calcium 9.3 (8.4-10.2) mg/dL Total Bilirubin 0.50 (0.1-1.2) mg/dL AST 12 (5-40) units/L ALT 8 (7-56) units/L Alkaline Phosphatase 40 (35-129) units/L Total Protein 7.8 (6.3-8.2) g/dL Albumin 4.2 (3.9-5) g/dL Albumin/Globulin Ratio 1.2 % HCG, Quant 10722 H (0-4) mIU/mL Urine Color (Yellow) Urine Turbidity (Clear) Urine pH (5.0-7.0) Ur Specific [place] (1.003-1.030) Urine Protein (Negative) mg/dL Urine Glucose (UA) (Negative) mg/dL Urine Ketones (Negative) mg/dL Urine Blood (Negative) Urine Nitrite (Negative) Urine Bilirubin (Negative) Urine Urobilinogen (<2.0) mg/dL Ur Leukocyte Esterase (Negative) Urine WBC (Auto) (0.0-6.0) /HPF Urine RBC (Auto) (0.0-6.0) /HPF U Epithel Cells (Auto) (0-13.0) /HPF Urine Mucus /HPF 06/15/21 Range/Units Unknown WBC (4.5-11.0) K/mm3 RBC (3.65-5.03) M/mm3 Hgb (10.1-14.3) gm/dl Hct (30.3-42.9) % MCV (79-97) fl MCH (28-32) pg MCHC (30-34) % RDW (13.2-15.2) % Plt Count (140-440) K/mm3 Lymph % (Auto) (13.4-35.0) % Wheeler % (Auto) (0.0-7.3) % Eos % (Auto) (0.0-4.3) % Baso % (Auto) (0.0-1.8) % Lymph # (Auto) (1.2-5.4) K/mm3 Wheeler # (Auto) (0.0-0.8) K/mm3 Eos # (Auto) (0.0-0.4) K/mm3 Baso # (Auto) (0.0-0.1) K/mm3 Seg Neutrophils % (40.0-70.0) % Seg Neutrophils # (1.8-7.7) K/mm3 Sodium (137-145) mmol/L Potassium (3.6-5.0) mmol/L Chloride (98-107) mmol/L Carbon Dioxide (22-30) mmol/L Anion Gap mmol/L BUN (7-17) mg/dL Creatinine (0.6-1.2) mg/dL Estimated GFR ml/min BUN/Creatinine Ratio % Glucose (65-100) mg/dL Calcium (8.4-10.2) mg/dL Total Bilirubin (0.1-1.2) mg/dL AST (5-40) units/L ALT (7-56) units/L Alkaline Phosphatase (35-129) units/L Total Protein (6.3-8.2) g/dL Albumin (3.9-5) g/dL Albumin/Globulin Ratio % HCG, Quant (0-4) mIU/mL Urine Color Yellow (Yellow) Urine Turbidity Cloudy (Clear) Urine pH 5.0 (5.0-7.0) Ur Specific [place] 1.029 (1.003-1.030) Urine Protein 30 mg/dl (Negative) mg/dL Urine Glucose (UA) 50 (Negative) mg/dL Urine Ketones 80 (Negative) mg/dL Urine Blood Neg (Negative) Urine Nitrite Neg (Negative) Urine Bilirubin Neg (Negative) Urine Urobilinogen 2.0 (<2.0) mg/dL Ur Leukocyte Esterase Neg (Negative) Urine WBC (Auto) 3.0 (0.0-6.0) /HPF Urine RBC (Auto) 2.0 (0.0-6.0) /HPF U Epithel Cells (Auto) 29.0 H (0-13.0) /HPF Urine Mucus 3+ /HPF - Medical Decision Making This is a [id number] female that presents with hyperemesis gravidarum. Patient is stable and was examined by me. There is no abdominal tenderness. Negative signs of symptoms of appendicitis, cholecystitis or acute abdomen. Labs obtained. UA obtained. Vital signs are stable prior to discharge. Patient received Reglan and 1L Normal saline in the ED which patient stated symptoms has resovled and subsided. A by mouth challenge has been obtained and patient tolerated well with no nausea vomiting. Patient was also instructed to Follow- up with a [facility] doctor in 3-5 days or if symptoms worsen and continue return to emergency room as soon as possible. At time of discharge, the patient does not seem toxic or ill in appearance. No acute signs of distress noted. Patient agrees to discharge treatment plan of care. No further questions noted by the patient. Critical care attestation.: If time is entered above; I have spent that time in minutes in the direct care of this critically ill patient, excluding procedure time. ED Disposition Clinical Impression: Hyperemesis gravidarum Disposition: HOME / SELF CARE / HOMELESS Is pt being admited?: No Does the pt Need Aspirin: No Condition: Stable Instructions: Hyperemesis Gravidarum Additional Instructions: Follow-up with a [facility] doctor in 3-5 days or if symptoms worsen and continue return to emergency room as soon as possible. Prescriptions: Metoclopramide [Reglan] 10 mg PO Q12H PRN #12 tab PRN Reason: Nausea Referrals: PRIMARY CARE, [Primary Care Provider] - 3-5 Days [facility] [Provider Group] - 3-5 Days [facility] [Provider [facility]] - 3-5 Days Forms: Work/School Release Form(ED) Time of Disposition: 23:06
[2021-06-15 22:58] LABS: Bilirubin,Urine NEG (Negative); Blood,Urine NEG (Negative); Color,Urine Yellow (Yellow); Mucus,Urine 3+ /HPF
== END 2021-06-15 20:00 | disposition home or self-care (01) ==
LOC: ED 16:53
DX: O21.0 Mild hyperemesis gravidarum (principal); Z3A.15 15 weeks gestation of pregnancy
CPT/HCPCS: 36415; 80053; 81001; 84702; 85025; 96361; 96374; 99283; J2765; J7030